=== PATIENT | male | born 1980 | race Caucasian/White ===

== ENCOUNTER 2016-11-25 16:41 | Emergency (ER) | payer OTHER ==
[~2016-11-25] VITALS: Ht 177.8 cm; Wt 68.2 kg
[2016-11-25 16:44] VITALS: BP 127/81; PULSE 63; RESP 16; O2SAT 100
--- NOTE | 2016-11-25 17:23 | DRSVH ---
PROCEDURE: X-RAY RIGHT KNEE, THREE VIEWS ([id number]) INDICATIONS: Knee pain TECHNIQUE: 3 views of the knee were acquired. COMPARISON: None. FINDINGS: Bones: No acute fractures or dislocations. There are postsurgical changes demonstrated consistent w ith prior ACL repair as well as prior fixation in the region of the tibial tuberosity. Soft tissues: There is a small joint effusion. No suspicious soft tissue calcifications. IMPRESSION: 1. No acute fracture or subluxation. 2. Postsurgical changes as described. 3. Small joint effusion. Dictated by: Kang Dumont M.D. on 11/25/2016 at 17:18 Approved by: Kang Dumont M.D. on 11/25/2016 at 17:22
--- NOTE | 2016-11-25 18:07 | ED.REPORT ---
HPI-Extremity Problem Lower Date of Service Nov 25, 2016 ED Provider: Andrew Santiago DO Patient is a 36 year old male with a history of right knee surgeries who presents to the ED complaining of right knee pain onset 3 days ago. He denies trouble walking, numbness or tingling. Patient reports that he was working on his house when he felt his "knee give out" and has had pain ever since. Nursing Notes Stated Complaint: RIGHT KNEE PAIN Chief Complaint: Extremity Trauma Nursing Notes Reviewed: Yes Allergies: Coded Allergies: No Known Allergies (Unverified , 11/25/16) General Time Seen by MD: 18:07 Chief Complaint Knee injury right Hx Obtained From: Patient Arrived By: Walk-in Onset Occurred: 3 days ago Symptom Duration: Since onset Caused by: Accidental Location: : Knee right Quality: Painful Severity: Current: Moderate Recent Healthcare: No recent doctor visit, No recent hospitalization Similar Sx Previous: Yes Past Medical History Past Medical History none reported Past Surgical History multiple right knee surgeries Smoking History Unknown if Ever Smoker Social History Other Social History: , Local resident Ambulatory Status Independent Review of Systems Constitutional: Denies: Chills, Fever Musculoskeletal: Reports: Extremity pain (right knee), Extremity swelling Skin: Denies Itching, Denies Rash Neurologic: Denies: Numbness, Problem walking, Weakness Complete sys rev & neg: except as marked. Respiratory: Denies: Non-productive cough, Shortness of breath Physical Exam Initial Vital Signs Vital Signs (First) Date Time Temp Pulse Resp B/P Pulse Ox O2 Delivery O2 Flow Rate FiO2 11/25/16 16:44 37.0 63 16 127/81 100 Room Air Initial VS: Reviewed Lower Extremity / Pelvis / MS: No deformity, Neurologic intact, Vascular intact Right Knee: Positive: Joint effusion present, Medial collat lig tender, ROM painful, Negative: Deformity present, Ecchymosis present, Erythema present, Neuro deficit present, Open fracture present, Pulses distal absent, Pulses distal decreased, Warmth present laxity of the right medial collateral ligament Ankle / Foot: Atraumatic, Full range of motion, No swelling, Non-tender, Neurologic intact, Vascular intact General/Constitutional: Awake, Alert, No acute distress Respiratory / Chest: Atraumatic, Breath sounds NL, Breath sounds = bilat, No respiratory distress Cardiovascular: Heart rate NL, Regular rhythm, Heart sounds NL Skin: Atraumatic, Color NL, No rash, Warm, Dry Neurologic: Oriented X3, Speech NL, No motor deficits, No sensory deficits, CN II - XII intact, Reflexes equal bilat Head / Eyes: Atraumatic, Normocephalic, PERRL, EOMI Psychiatric: Affect NL, Mood NL Interpretation & Diagnostics X-Ray Interpretation Xray Interpretation: IMPRESSION: 1. No acute fracture or subluxation. 2. Postsurgical changes as described. 3. Small joint effusion. Dictated by: Kang Dumont M.D. on 11/25/2016 at 17:18 Approved by: Kang Dumont M.D. on 11/25/2016 at 17:22 X-Ray Ordered: Knee right Interpretation / Wet Read by: Interpret - Radiologist Re-Eval/Medical Decision Med Decision/Clinical Course Laxity with valgus testing. X-rays reassuring. Medial collateral ligament sprain suspected. He has an immobilizer at home. He will get back in the immobilizer. Orthopedic referral given. Naprosyn recommended twice daily. [place] for breakthrough severe pain with routine opiate warnings was given. Re-Evaluation/Progress : Time of Eval: 18:29 Re-Evaluation/Progress Note: Discussed X-ray results and plan for follow up with ortho if pain persists in a week. Plan for discharge discussed. Patient understands and agrees to plan for discharge. All questions were addressed. Counseled Regarding: Diagnosis, Lab results, Need for follow-up, When/why to return to ED Discharge & Departure Impression: Primary Impression: Medial collateral ligament sprain of knee Encounter type: initial encounter Laterality: right Qualified Code: S83.411A - Sprain of medial collateral ligament of right knee, initial encounter Disposition: Home Discharge Condition All VS Reviewed: Yes Condition: Stable Patient Instructions: Knee Sprain (ED), Splint Care (ED) Additional Instructions: Your X-ray was normal and reassuring. There was no evidence of a fracture but you may have sprain Wear the brace for a week. If you are still in pain, follow up with the referred ortho. Take the anti-inflammatory, Naproxen 2x a day. You can also take 1-2 [place] every 6 hours as needed for pain. Do not drink alcohol or drive while taking the pain medication. Do not combine with Acetaminophen. Return to the emergency department if you develop any new or concerning symptoms. Referrals: [facility] Alfredo Dumont MD Attestation Portions of this note were transcribed by Mavis Holbrook. I, Dr. Santiago personally performed the history, physical exam and medical decision-making; I reviewed and confirmed the accuracy of the information in the transcribed note. Signed by: Diana Root, 11/25/16 and 1820 copies to: [facility]; Alfredo Dumont MD, Todd P DO Nov 25, 2016 18:07 Priscilla Holbrook Nov 25, 2016 18:22
[2016-11-25 18:27] VITALS: BP 126/80; PULSE 62; RESP 16; O2SAT 99
== END 2016-11-25 18:28 | disposition home or self-care (01) ==
LOC: SED 16:41
DX: S83.411A Sprain of medial collateral ligament of right knee, initial encounter (principal); X50.9XXA Other and unspecified overexertion or strenuous movements or postures, initial encounter; Y92.018 Other place in single-family (private) house as the place of occurrence of the external cause; Y93.89 Activity, other specified; Y99.8 Other external cause status